=== PATIENT | female | born 1965 | race Caucasian/White ===

== ENCOUNTER 2016-11-11 07:43 | Emergency (ER) | payer BC ==
[2016-11-11 08:15] VITALS: BP 130/72
--- NOTE | 2016-11-11 08:40 | UC ---
Back Pain HPI - HPI Summary HPI Summary: Low back pain into the left buttocks for the last few weeks ever since using a riding mower end of September. This pain is lower than prior disc herniation. she has been to pcp and PT and they believe this may be piriformis. the pain is worse and she has no pain medications. No saddle anesthesia and only occassional numbness left foot. 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 Character: Aching Aggravating: Movement, Lifting, Bending Alleviating: Rest, Position Associated Signs And Symptoms: Negative: Swelling, Redness, Bruising, Fever, Weakness, Abdominal Pain, Flank Pain, Bladder Incontinence, Bowel Incontinence - Allergies/Home Medications Allergies/Adverse Reactions: Allergies Allergy/AdvReac Type Severity Reaction Status Date / Time No Known Allergies Allergy Verified 11/11/16 08:15 Home Medications: Home Medications Gabapentin CAP(*) [Neurontin 100 mg CAP(*)] 100 mg PO TID 11/11/16 [History Confirmed 11/11/16] Multiple Vitamins W/ Minerals [Multivitamin Adults] 1 tab PO DAILY 11/11/16 [ History Confirmed 11/11/16] predniSONE TAB* [Deltasone TAB*] 40 mg PO DAILY 11/11/16 [History Confirmed ] PMH/Surg Hx/FS Hx/Imm Hx Previously Healthy: No - prior lumbar disc herniation. - Surgical History Surgical History: Yes Surgery Procedure, Year, and Place: tonsils - Family History Known Family History: Positive: Other - no related back family history. - Social History Alcohol Use: Occasionally Substance Use Type: None Smoking Status (MU): Former Smoker Review of Systems Musculoskeletal: Myalgia All Other Systems Reviewed And Are Negative: Yes Physical Exam Triage Information Reviewed: Yes Appearance: Pain Distress - obvious pain with changes in position. Vital Signs: Initial Vital Signs Temp 99.2 F 11/11/16 08:05 Pulse 56 11/11/16 08:05 Resp 16 11/11/16 08:05 BP 130/72 11/11/16 08:05 Pulse Ox 98 11/11/16 08:05 Vital Signs Reviewed: Yes Eye Exam: Normal ENT Exam: Normal Neck exam: Normal Respiratory Exam: Normal Cardiovascular Exam: Normal Abdominal Exam: Normal Musculoskeletal Exam: Other - there is no midline or paraspinal back pain / tenderness. neg straight leg raise. Musculoskeletal: Positive: ROM Limited @ Neurological Exam: Normal - faith Lower extremity intact reflexes of patella and achilles. pin prick intact in all dermatomes. ankle flexion and extension intact strength. Psychological Exam: Normal Skin Exam: Normal Back Pain Course/Dx - Course Course Of Treatment: the pain is more in the left buttock. No signs or symptoms of cord compression. NO signs of infection. she will continue PT. out of work note. She will start pain medications but was cautioned about the sedating properties. she willnot take them together or drive. she will return for any worsening. she has f/u with pcp and ortho already in place. - Differential Dx/Diagnosis Differential Diagnosis/HQI/PQRI: Aneurysm, Cauda Equina Syndrome, Compressive Cord Syndrome, Epidural Abscess, Fracture, Herniated Disc, Neoplasm, Septic Arthritis, Strain, Sprain Provider Diagnoses: low back pain. left buttock pain. possible disc herniation versus piriformis spasm. Discharge - Discharge Plan Condition: Good Disposition: HOME Prescriptions: Cyclobenzaprine TAB* [Flexeril 10 MG TAB*] 10 mg PO TID PRN #20 tab PRN Reason: Pain HYDROcodone/ACETAMIN 5-325 MG* [[place] 5-325 TAB*] 1 tab PO Q4H PRN #20 tab MDD 6 PRN Reason: Pain Patient Education Materials: Acute Low Back Pain (ED), Low Back Strain (ED) Forms: *Work Release Additional Instructions: follow up with pcp and with ortho as already planned. return for any worsening.
== END 2016-11-11 08:47 | disposition home or self-care (01) ==
LOC: UCCORT 07:43
DX: M54.5 Low back pain (principal); M79.1 Myalgia; Z87.891 Personal history of nicotine dependence
CPT/HCPCS: 99202; G0463

== ENCOUNTER 2018-06-25 10:07 | Emergency (ER) | payer BC ==
[2018-06-25 10:53] VITALS: BP 113/70
--- NOTE | 2018-06-25 11:09 | UC ---
Skin Complaint HPI - HPI Summary HPI Summary: 52 -year-old female who had an appendectomy approximately 2 weeks ago for ruptured appendix. She had been on IV Levaquin floxacillin since that time. She had been in the hospital and developed diarrhea although there is test for C. difficile were negative. She was discharged this past Wednesday, 2 days ago , and stated at the time her IV had infiltrated and had been infusing potassium. She stated the nurses then injected around the infusion site because of the infiltration. When she was discharged she had some redness to that area and was placed on levofloxacin. She has had 2 days of levofloxacin. The redness has increased approximately 2 inches proximally and is mildly tender on palpation. She denies any fever or chills, no vomiting. - History of Current Complaint Chief Complaint: UCSkin Time Seen by Provider: 06/25/18 10:47 Stated Complaint: SKIN COMPLAINT Hx Obtained From: Patient Hx Last Menstrual Period: yrs ?: No Onset/Duration: Gradual Onset, Other - Started 2 days ago with the IV infiltration Skin Exposure Onset/Duration: Days Ago Timing: Constant Onset Severity: Mild Current Severity: Mild Pain Intensity: 2 Location: Other - Right Forearm Character: Redness, Painful Aggravating Factor(s): Touch Alleviating Factor(s): Nothing Associated Signs & Symptoms: Positive: Tenderness, Red Streaks Related History: Other: - IV infiltration on Wednesday of this week. - Allergy/Home Medications Allergies/Adverse Reactions: Allergies Allergy/AdvReac Type Severity Reaction Status Date / Time No Known Allergies Allergy Verified 11/11/16 08:15 Home Medications: Home Medications Levofloxacin TAB* [Levaquin TAB*] 500 mg PO DAILY 06/25/18 [History Confirmed ] metroNIDAZOLE * [Flagyl] 500 mg PO Q8H 06/25/18 [History Confirmed 06/25/18] PMH/Surg Hx/FS Hx/Imm Hx Previously Healthy: Yes - Surgical History Surgical History: Yes Surgery Procedure, Year, and Place: tonsils, appy - Family History Known Family History: Positive: None, Other - no related back family history. - Social History Occupation: Employed Full-time Lives: With Family Alcohol Use: Occasionally Substance Use Type: None Smoking Status (MU): Never Smoked Tobacco Review of Systems All Other Systems Reviewed And Are Negative: Yes Skin: Positive: Other - Cellulitis Right forearm which started 2 days ago when an IV infiltrated that was infusing Potassium. Gastrointestinal: Positive: Diarrhea - Patient had been having diarrhea throughout her hospital stay and therefore is also on metronidazole as well as levofloxacin even though the test for C. difficile was negative. Is Patient Immunocompromised?: No Physical Exam Triage Information Reviewed: Yes Appearance: Well-Appearing, No Pain Distress, Well-Nourished, Other: - Mildly pale. Vital Signs: Initial Vital Signs Temp 98.6 F 06/25/18 10:46 Pulse 74 06/25/18 10:46 Resp 16 06/25/18 10:46 BP 113/70 06/25/18 10:46 Pulse Ox 100 06/25/18 10:46 Vital Signs Reviewed: Yes Musculoskeletal: Positive: Strength Intact, ROM Intact Neurological: Positive: Alert, Muscle Tone Normal - Peripheral pulses neuro sensation and capillary refill., Other: Skin: Positive: Other - Cellulitis right forearm which has progressed approximately 5.0 cm proximal to the original edge of the cellulitis from Wednesday. Tender on palpation. No epitrochlear lymph node enlargement. Forearm is not swollen. Course/Dx - Course Course Of Treatment: Patient has been comfortable here. We discussed staying on the present medications and apply warm moist compresses 4-6 times a day for 20 minutes each time. Definite recheck in 24 hours in the emergency room if she develops fever , chills, worsening of symptoms, arm swelling, vomiting and unable to her medications down. She is agreeable to this plan of action. - Differential Diagnoses - Skin Complaint Differential Diagnoses: Cellulitis - Diagnoses Provider Diagnosis: Cellulitis Discharge - Sign-Out/Discharge Documenting (check all that apply): Patient Departure All imaging exams completed and their final reports reviewed: No Studies - Discharge Plan Condition: Fair Disposition: HOME Patient Education Materials: Cellulitis (DC) Referrals: David ANGEL,Ellie Diaz [Primary Care Provider] - Additional Instructions: Continue your present medications. Apply warm moist compresses to the area of concern 4-6 times a day for 20 minutes each time. Up with your primary care provider if no improvement on Wednesday. In the meantime if you develop fever, chills, arm swelling, vomiting, increased red streaks up the arm, your to go to the emergency room for evaluation and treatment. - Billing Disposition and Condition Condition: FAIR Disposition: Home
== END 2018-06-25 11:16 | disposition home or self-care (01) ==
LOC: UCCORT 10:07
DX: L03.90 Cellulitis, unspecified (principal)
CPT/HCPCS: 99211; G0463